=== PATIENT | female | born 1970 | race Hispanic/Latino ===

== ENCOUNTER 2023-08-30 08:17 | Emergency (ER) | payer MEDICAID, SELFPAY ==
[2023-08-30 08:22] VITALS: BP 160/106; PULSE 75; RESP 18; TEMP 36.6; O2SAT 99
--- NOTE | 2023-08-30 08:26 | ED.GENADULT ---
HPI - General Adult General Chief complaint: Unspecified Stated complaint: does not feel well Time Seen by Provider: 08/30/23 08:26 Source: train conductor Mode of arrival: ambulatory Limitations: no limitations History of Present Illness HPI narrative: 52-year-old otherwise healthy here with complaints of feeling dizzy on and off for past 15 days . She also complains of stomach upset. No history of nausea and vomiting recently had 1 episode of vomiting 15 days ago she denies any diarrhea. She also complains of left arm pain which has been ongoing for several days. Denies any chest pain or shortness of breath. Onset (ago): day(s) (15) Quality: aching Treatments prior to arrival: none Related Data Allergies Allergy/AdvReac Type Severity Reaction Status Date / Time No Known Allergies Allergy Verified 08/30/23 08:31 Review of Systems Review of Systems: All systems reviewed & are unremarkable except as noted in HPI and below Constitutional: Constitutional: Reports no additional constitutional complaints Eyes: Eyes: Reports no additional eye complaints ENT: Reports system reviewed and no additional complaints, except as documented Cardiovascular: Cardiovascular: Reports no additional cardiovascular complaints Respiratory: Respiratory: Reports no additional respiratory complaints Neurologic: Reports system reviewed and no additional complaints, except as documented Exam Narrative: GENERAL: Well-appearing, well-nourished, and in no acute distress. HEAD: Normocephalic, atraumatic. EYES: PERRLA and EOMI. ENT: Nares clear, no rhinorrhea or epistaxis. Mucous membranes moist. NECK: Supple. CHEST: Clear to auscultation. No respiratory distress. HEART: Regular rate and rhythm. No murmur heard. Normal peripheral pulses. ABDOMEN: Soft, nontender, nondistended, normal active bowel sounds. EXTREMITIES: Normal range of motion. No edema. SKIN: Warm, dry, no rash. NEURO: No focal deficits. Alert and oriented x3. PSYCH: Normal mood and affect. Course Course Emergency Course: Notified patient and family about her lab work, EKG findings today her blood pressure is slightly elevated however the finger for the 1st time recommended her to follow with her primary doctor. Vital Signs Vital signs: Vital Signs Temperature 36.6 C 08/30/23 08:22 Pulse Rate 75 08/30/23 08:22 Respiratory Rate 18 08/30/23 08:22 Blood Pressure 160/106 H 08/30/23 08:22 Pulse Oximetry 99 08/30/23 08:22 Oxygen Delivery Room Air 08/30/23 08:22 Temperature 36.6 C 08/30/23 08:22 Pulse Rate 74 08/30/23 09:23 Respiratory Rate 18 08/30/23 08:52 Blood Pressure 147/93 H 08/30/23 09:24 Pulse Oximetry 99 08/30/23 08:52 Oxygen Delivery Room Air 08/30/23 08:22 Medical Decision Making Vital Signs Vital Signs: Vital Signs Temperature 36.6 C 08/30/23 08:22 Pulse Rate 75 08/30/23 08:22 Respiratory Rate 18 08/30/23 08:22 Blood Pressure 160/106 H 08/30/23 08:22 Pulse Oximetry 99 08/30/23 08:22 Oxygen Delivery Room Air 08/30/23 08:22 Temperature 36.6 C 08/30/23 08:22 Pulse Rate 74 08/30/23 09:23 Respiratory Rate 18 08/30/23 08:52 Blood Pressure 147/93 H 08/30/23 09:24 Pulse Oximetry 99 08/30/23 08:52 Oxygen Delivery Room Air 08/30/23 08:22 Lab Data 08/30/23 09:18 08/30/23 09:18 Labs: Lab Results 08/30/23 08/30/23 Range/Units 09:18 09:32 WBC 5.0 (4.5-10.0) K/mm3 RBC 4.71 (4.2-5.4) M/mm3 Hgb 14.7 (12.0-15.0) g/dL Hct 44.5 (37.0-47.0) % MCV 94.5 (80-100) fl MCH 31.2 (26-34) pg MCHC 33.0 (32-36) g/dl RDW 13.2 (11.5-14.5) % Plt Count 216 (150-375) k/mm3 MPV 10.5 H (7.4-10.4) fl Immature Gran % (Auto) 0.2 (0-0.5) % Neut % (Auto) 58.1 (45.5-73.1) % Lymph % (Auto) 27.4 (18.3-44.2) % [place] % (Auto) 9.3 H (2.6-8.5) % Eos % (Auto) 3.8 (0-4.4) % Baso % (Auto) 1.2 (0.2-1.2) %
[2023-08-30 08:52] VITALS: BP 150/107; PULSE 79; RESP 18; O2SAT 99
--- NOTE | 2023-08-30 09:00 | ECG_ITS ---
Measurements Intervals Laura Rate: 72 P: 52 AR: 162 QRS: 37 QRSD: 90 T: 24 QT: 403 QTc: 442 Interpretive Statements SINUS RHYTHM BASELINE ARTIFACT- I, II, AVR NORMAL ECG NO PREVIOUS ECG AVAILABLE FOR COMPARISON Electronically Signed On 08-30-2023 9:33:11 CDT by Edson Hernandez D.O.
[2023-08-30 09:22] VITALS: BP 153/98; PULSE 69
[2023-08-30 09:23] VITALS: BP 147/93; PULSE 74
[2023-08-30 09:24] VITALS: BP 147/93
[2023-08-30 09:28] LABS: Basophils Absolute Auto 0.1 K/mm3 (0.0-0.1); Basophils Percent Auto 1.2 % (0.2-1.2); Eosinophils Absolute Auto 0.2 K/mm3 (0-0.3); Eosinophils Percent Auto 3.8 % (0-4.4); Hematocrit 44.5 % (37.0-47.0); Hemoglobin 14.7 g/dL (12.0-15.0); Immature Granulocyte Absolute 0.01 K/mm3 (0.00-0.031); Immature Granulocyte Percent A 0.2 % (0-0.5); Lymphocytes Absolute Auto 1.38 K/mm3 (0.9-3.2); Lymphocytes Percent Auto 27.4 % (18.3-44.2); Mean Corpuscular Hemoglobin 31.2 pg (26-34); Mean Corpuscular Volume 94.5 fl (80-100); Mean Platelet Volume 10.5 fl (7.4-10.4); Monocytes Absolute Auto 0.5 K/mm3 (0.1-0.6); Monocytes Percent Auto 9.3 % (2.6-8.5); Neutrophils Absolute Auto 2.9 K/mm3 (1.3-6.7); Neutrophils Percent Auto 58.1 % (45.5-73.1); Platelet Count Result 216 k/mm3 (150-375); Red Blood Count 4.71 M/mm3 (4.2-5.4); Red Cell Distribution Width 13.2 % (11.5-14.5)
[2023-08-30 09:38] LABS: Alanine Aminotransferase 30 U/L (6-35); Albumin Level 4.1 g/dL (3.5-5.1); Alkaline Phosphatase 64 U/L (38-126); Anion Gap 5 mmol/L (8-16); Aspartate Amino Transferase 30 U/L (14-36); Bilirubin,Total 0.5 mg/dL (0.2-1.3); Blood Urea Nitrogen 10 mg/dL (7-17); Calcium 9.2 mg/dL (8.4-10.2); Carbon Dioxide 32 mmol/L (22-30); Chloride 101 mmol/L (98-107); Estimated Glomerular Filt Rate > 60; Glucose 101 mg/dL (65-110); Lipase 164 U/L (23-300); Potassium 3.6 mmol/L (3.4-5.0); Sodium 138 mmol/L (137-145)
[2023-08-30 09:49] LABS: Troponin I < 0.012 ng/mL (0.000-0.034)
[2023-08-30 09:52] LABS: Bacteria Urine Rare /hpf; Non Pathogenic Casts 0-2; RBC Urine 0-2 /hpf (0-2); Squamous Epithelial Cell Urine Moderate /hpf (Few); WBC Urine 0-5 /hpf (0-3)
[2023-08-30 09:53] LABS: Appearance Urine Clear (Clear); Color Urine Yellow (Yellow)
[2023-08-30 09:54] LABS: Add Urine Microscopic? NO; Bilirubin Urine Negative (Negative); Blood Urine Negative (Negative); Glucose Urine UA Negative (Negative); Ketones Urine Negative (Negative); Leukocyte Esterase Ur Negative LEU/UL (Negative); Nitrate Urine Negative (Negative); Protein Urine Negative (Negative); Urobilinogen Urine 0.2 mg/dL (<2.0)
[2023-08-30 10:43] VITALS: BP 149/97; PULSE 72; RESP 18; O2SAT 100
== END 2023-08-30 10:53 | disposition home or self-care (01) ==
PROVIDERS: Emergency Provider Family Medicine
DX: R42 Dizziness and giddiness (principal)
CPT/HCPCS: 36415; 80053; 81003; 81025; 83690; 84484; 85025; 93005; 99284

== ENCOUNTER 2024-01-12 09:48 | Outpatient (CLI) | payer MEDICAID, SELFPAY ==
--- NOTE | 2024-01-12 10:12 | EST_ITS ---
Patient Info Name: Amanda Cameron Age: 53 years : 1970 Gender: Female Ht: 62 in Wt: 160 lbs BSA: 1.81 m2 HR: 68 bpm BP: 121 / 79 mmHg Heart Rhythm: Sinus Rhythm Exam Date: 01/12/2024 10:42 AM Exam Location: [facility] Patient Status: Outpatient Admit Date: 01/12/2024 Staff Ordering Physician: Edson Hernandez DO Attending Provider: Edson Hernandez DO Exercise Technologist: Fanta Gomez CT Exercise Physician: Edson Hernandez DO Exam Type: CA stress test treadmill Study Info Indications - ANESTHESIA OF SKIN A treadmill exercise stress test was performed. Summary 1. 1. Negative Roe exercise stress test for ischemic ST changes by ECG criteria. 2. 2. Reduced functional capacity, achieving 4.7 METs of workload. 3. 3. Appropriate HR response to exercise. 4. 4. Appropriate HR recovery at 1 minute post exercise. 5. 5. No imaging with stress testing. 6. 6. Patient informed of the above results. Protocol: Roe Stress ECG Details Stage: REST Duration (min): 3 min : 4 sec Speed (mph): 0.0 Grade (%): 0 HR (bpm): 70 SBP (mmHg): 121 DBP (mmHg): 79 METS: --- Stage: REST Duration (min): 6 min : 11 sec Speed (mph): 0.0 Grade (%): 0 HR (bpm): 76 SBP (mmHg): 121 DBP (mmHg): 79 METS: --- Stage: STAGE 1 Duration (min): 1 min : 0 sec Speed (mph): 1.7 Grade (%): 10 HR (bpm): 111 SBP (mmHg): 121 DBP (mmHg): 79 METS: --- Stage: STAGE 1 Duration (min): 2 min : 0 sec Speed (mph): 1.7 Grade (%): 10 HR (bpm): 137 SBP (mmHg): 121 DBP (mmHg): 79 METS: --- Stage: STAGE 1 Duration (min): 3 min : 0 sec Speed (mph): 1.7 Grade (%): 10 HR (bpm): 147 SBP (mmHg): 121 DBP (mmHg): 79 METS: --- Stage: RECOVERY Duration (min): 0 min : 59 sec Speed (mph): 0.0 Grade (%): 0 HR (bpm): 110 SBP (mmHg): 121 DBP (mmHg): 79 METS: --- Stage: RECOVERY Duration (min): 1 min : 59 sec Speed (mph): 0.0 Grade (%): 0 HR (bpm): 93 SBP (mmHg): 171 DBP (mmHg): 93 METS: --- Stage: RECOVERY Duration (min): 2 min : 53 sec Speed (mph): 0.0 Grade (%): 0 HR (bpm): 85 SBP (mmHg): 142 DBP (mmHg): 89 METS: --- Rest HR: 76 bpm Peak HR: 147 bpm Rest Sys BP: 121 mmHg Peak Sys BP: 171 mmHg Max Pred HR: 167 bpm % Max Pred HR: 88 % Target HR: 142 bpm Max RPP: 25,137 bpm*mmHg Pulido Score: -5 Termination Reason: Reached target heart rate or workload Cardiac Symptoms: Shortness of breath Max ST Seg Deviation: -1.70 mm Total Time: 3 min : 0 sec Rest Nicole BP: 79 mmHg Peak Nicole BP: 93 mmHg Angina Score: None Total METS: 4.7 Resting ECG Sinus rhythm. Stress ECG No ST changes. Remote gis consultant present. Arrhythmias None. Report Signatures
== END 2024-01-12 09:49 | disposition home or self-care (01) ==
LOC: ANHCARD 09:55
PROVIDERS: PCP Physician Assistant; Visit Provider Internal Medicine Cardiovascular Disease
DX: R20.0 Anesthesia of skin (principal)
CPT/HCPCS: 93017